=== PATIENT | female | born 1950 ===

== ENCOUNTER 2024-03-12 21:11 | Emergency (ER) | payer MEDICARE ==
[~2024-03-12] VITALS: Ht 152.4 cm; Wt 61.2 kg
[2024-03-12 22:06] LABS: Source, Urine Clean Catch
[2024-03-12 22:10] LABS: Appearance, Urine Cloudy (Clear); Bilirubin, Urine Neg (Neg); Blood, Urine 5+ (Neg); Color, Urine Yellow (P-Yellow); Glucose Qualitative, Urine Neg (Neg); Ketones, Urine Neg (Neg); Leukocyte Esterase, Urine 3+ (Neg); Nitrite, Urine Pos (Neg); Protein, Urine 3+ (Neg); Specific Gravity, Urine 1.025 (1.003-1.022); Urobilinogen, Urine NORM (Normal)
[2024-03-12 22:18] LABS: Bacteria Mod /hpf; Red Blood Cells, Urine 50-100 /hpf (0-2); Squamous Epithelial Cells Few /hpf (Few); White Blood Cells, Urine 50-100 /hpf (0-5)
[2024-03-12] MEDS ORDERED: Bactrim Ds Tab1 EACH PO (22:59)
[2024-03-12] MEDS ORDERED: Trimethoprim/Sulfamethoxazole DS Tab PO ONE (23:00)
== END 2024-03-12 23:14 | disposition home or self-care (01) ==
LOC: ER 21:11
PROVIDERS: Student in an Organized Health Care Education/Training Program
DX: N39.0 Urinary tract infection, site not specified (principal)
CPT/HCPCS: 81001; 87086; 99283; A9270